=== PATIENT | male | born 1935 | race Caucasian/White ===

== ENCOUNTER → 2016-08-31 | Outpatient (CLI) | payer MEDICARE ==
[~2016-08-31] MED LIST: ASPI81CH32 PO; B121000T PO; TIMO5OPG OD
== END ==
LOC: M LAB 16:28
PROVIDERS: ATTEND Ophthalmology
DX: H54.61 Unqualified visual loss, right eye, normal vision left eye (principal)

== ENCOUNTER → 2016-09-01 | Outpatient (CLI) | payer MEDICARE ==
[2016-09-01 13:47] LABS: BLOOD UREA NITROGEN 20 MG/DL (7-18); CREATININE FOR GFR 0.79 MG/DL (0.70-1.30); GLOMERULAR FILTRATION RATE > 60.0 (>35)
== END ==
LOC: M LAB 12:50
PROVIDERS: ATTEND Ophthalmology
DX: H46.9 Unspecified optic neuritis (principal)

== ENCOUNTER 2016-09-02 08:52 | Outpatient (CLI) | payer MEDICARE ==
[~2016-09-02] VITALS: Ht 180.3 cm; Wt 87.3 kg
[2016-09-02] MEDS ORDERED: methylPREDNISolone 1,000 MG, VIAL MATE ADAPTER 1 EACH in D5W 250 ML IV ONE (09:30)
== END 2016-09-02 11:32 | disposition home or self-care (01) ==
LOC: M OPCLI4PR 08:52 → M MSPAV 08:54 → M OPCLI4PR 11:32
PROVIDERS: ATTEND Ophthalmology
DX: H46.9 Unspecified optic neuritis (principal)
CPT/HCPCS: 96365; J2930

== ENCOUNTER 2016-09-03 08:56 | Outpatient (CLI) | payer MEDICARE ==
[2016-09-03] MEDS ORDERED: methylPREDNISolone 1,000 MG, VIAL MATE ADAPTER 1 EACH in D5W 250 ML IV ONE (09:15)
[2016-09-03 09:35] VITALS: BP 148/76
[2016-09-03 10:40] VITALS: BP 155/80
[2016-09-04] MEDS ORDERED: TIMO5OPG OD (09:23)
[2016-09-04] MEDS ORDERED: ASPI81CH32 PO (09:24)
[2016-09-04] MEDS ORDERED: B121000T PO (09:24)
== END 2016-09-03 10:50 | disposition home or self-care (01) ==
LOC: M OPCLI4PV 08:56 → M MSPAV 08:58 → M OPCLI4PV 10:50
PROVIDERS: ATTEND Ophthalmology
DX: H46.9 Unspecified optic neuritis (principal)
CPT/HCPCS: 96365; J2930

== ENCOUNTER 2016-09-04 08:52 | Outpatient (CLI) | payer MEDICARE ==
[~2016-09-04] VITALS: Ht 180.3 cm; Wt 87.3 kg
[2016-09-04 09:15] VITALS: BP 151/74
[2016-09-04] MEDS ORDERED: TIMO5OPG OD (09:23)
[2016-09-04] MEDS ORDERED: B121000T PO (09:24)
[2016-09-04] MEDS ORDERED: ASPI81CH32 PO (09:24)
[2016-09-04] MEDS ORDERED: methylPREDNISolone 1,000 MG, VIAL MATE ADAPTER 1 EACH in D5W 250 ML IV ONE (09:30)
== END 2016-09-04 10:53 | disposition home or self-care (01) ==
LOC: M OPCLI4PR 08:52 → M PED 08:54 → M OPCLI4PR 10:53
PROVIDERS: ATTEND Ophthalmology
DX: H46.11 Retrobulbar neuritis, right eye (principal)
CPT/HCPCS: 96365; J2930

== ENCOUNTER → 2016-09-07 | Outpatient (CLI) | payer MEDICARE ==
--- NOTE | 2016-09-08 09:04 | REP ---
MR BRAIN WITHOUT AND WITH CONTRAST: HISTORY: Optic neuritis. CONTRAST: ProHance 17.6 mL. A small area of increased signal intensity and diffusion and T2-weighted images is present in the left cerebellum. This is slightly decreased in signal intensity on ADC images and is consistent with an early subacute infarction. Areas of increased signal intensity on T2-weighted images are present in the periventricular and subcortical white matter and maribel. This represents small vessel ischemic disease. There is no intraparenchymal hemorrhage, acute infarct, mass, or midline shift. There is no abnormal enhancement. The ventricular system and cortical sulci are dilated consistent with mild volume loss. There is no extracerebral collection. The sinuses are clear. IMPRESSION: 1. Small subacute left cerebellar infarction. 2. Small vessel ischemic disease. 3. Mild volume loss. Signed by Truong Dos Santos MD 09/08/2016 09:31 A
--- NOTE | 2016-09-08 09:07 | REP ---
MR ORBITS WITHOUT AND WITH CONTRAST: HISTORY: Optic neuritis. CONTRAST: ProHance 17.6 mL. The globes, optic nerves, and rectus muscles are normal in appearance. There is no orbital lesion. There is no abnormal enhancement. The cavernous sinuses, optic chiasm, and hypothalamus are normal in appearance. The sinuses are clear. IMPRESSION: There is no orbital lesion. Signed by Truong Dos Santos MD 09/08/2016 09:32 A
== END ==
LOC: M RAD 13:08
PROVIDERS: ATTEND Ophthalmology
DX: H46.9 Unspecified optic neuritis (principal)
CPT/HCPCS: 70543; 70553; A9576

== ENCOUNTER → 2016-11-02 | Outpatient (CLI) | payer MEDICARE ==
[~2016-11-02] MED LIST changes: +ATOR40TA75 PO; +CLOP75TA2 PO; +DIGO0.12 PO; +ELIQ5TAB PO; +NITR0.2D TD; +NITR0.4S14 SL
--- NOTE | 2016-11-16 14:25 | REP ---
Chest two views HISTORY: COPD Comparison: None The examination is available for review 02:15 p.m. 11/16/16 The lungs are hyperinflated. Linear densities are present in the left lower lobe consistent with atelectasis or scar. The heart is normal in size. The pulmonary vasculature is normal in appearance. The bony structure is intact. IMPRESSION: Left lower lobe atelectasis or scar. Signed by rTuong Dos Santos MD 11/16/2016 02:17 P
== END ==
LOC: M RAD 10:26
PROVIDERS: ATTEND Internal Medicine Cardiovascular Disease
DX: J98.11 Atelectasis (principal); J44.9 Chronic obstructive pulmonary disease, unspecified

== ENCOUNTER 2017-01-22 10:31 | Emergency (ER) | payer MEDICARE ==
[~2017-01-22] VITALS: Ht 180.3 cm; Wt 83.9 kg
[~2017-01-22 10:31] MED LIST changes: -ATOR40TA75 PO; -CLOP75TA2 PO; -DIGO0.12 PO; -ELIQ5TAB PO; -NITR0.2D TD; -NITR0.4S14 SL
[2017-01-22 11:11] LABS: BASO % 0.3 % (0.0-1.0); EOS # 0.2 10^3/uL (0.0-0.50); EOS % 1.7 % (0.0-3.0); IMMATURE GRANULOCYTE % 1.2 % (0-0); LYMPH # 1.3 10^3/uL (1.5-4.5); LYMPH % 12.8 % (24.0-44.0); MEAN CORPUSCULAR HGB CONC 30.2 g/dl (32.0-36.5); MEAN CORPUSCULAR VOLUME 102.7 fl (80.0-96.0); MONO # 0.7 10^3/uL (0.0-0.8); MONO % 7.4 % (0.0-5.0); NEUTROPHILS # 7.7 10^3/uL (1.8-7.7); NEUTROPHILS % 76.6 % (36.0-66.0); PLATELET COUNT, AUTOMATED 271 10^3/uL (150-450); RED CELL DISTRIBUTION WIDTH 16.5 % (11.5-14.5)
[2017-01-22] MEDS ORDERED: NITR0.2D TD (11:11)
[2017-01-22] MEDS ORDERED: ATOR40TA75 PO (11:11)
[2017-01-22] MEDS ORDERED: CLOP75TA2 PO (11:11)
[2017-01-22] MEDS ORDERED: DIGO0.12 PO (11:11)
[2017-01-22] MEDS ORDERED: NITR0.4S14 SL (11:11)
[2017-01-22] MEDS ORDERED: ELIQ5TAB PO (11:11)
--- NOTE | 2017-01-22 11:17 | REP ---
Chest one-view HISTORY: Chest pain Comparison: 11/02/2016 Linear densities are present in the left lower lobe consistent with scar. The right lung is clear. The heart is normal in size. The pulmonary vasculature is normal in appearance. Impression: Left lower lobe scar. Signed by Truong Dos Santos MD 01/22/2017 11:09 A
[2017-01-22 11:23] LABS: INR 1.27
[2017-01-22 11:32] LABS: ALBUMIN 3.2 GM/DL (3.2-5.2); ALKALINE PHOSPHATASE 139 U/L (45-117); ALT/SGPT 23 U/L (12-78); ANION GAP 9 MEQ/L (8-16); AST/SGOT 28 U/L (15-37); BILIRUBIN,DIRECT 0.2 MG/DL (0.0-0.2); BILIRUBIN,TOTAL 0.5 MG/DL (0.2-1.0); BLOOD UREA NITROGEN 22 MG/DL (7-18); CALCIUM LEVEL 8.4 MG/DL (8.8-10.2); CARBON DIOXIDE LEVEL 24 MEQ/L (21-32); CHLORIDE LEVEL 109 MEQ/L (98-107); CREATININE FOR GFR 0.93 MG/DL (0.70-1.30); FREE T4 1.25 NG/DL (0.76-1.46); GLOMERULAR FILTRATION RATE > 60.0 (>35); GLUCOSE, FASTING 118 MG/DL (83-110); SODIUM LEVEL 142 MEQ/L (136-145); TOTAL PROTEIN 6.1 GM/DL (6.4-8.2)
[2017-01-22] MEDS ORDERED: PANTOPRAZOLE SODIUM 40 MG in D5W 50 ML IV SCH (12:00)
[2017-01-22] MEDS ORDERED: PANTOPRAZOLE 40MG INJ (PROTONIX) (C9113) IV ONE (12:00)
[2017-01-22 15:43] VITALS: BP 121/59
--- NOTE | 2017-01-22 18:54 | ECGEPIP ---
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
== END 2017-01-22 15:47 | disposition short-term general hospital (02) ==
LOC: M ED 10:31 → EDBD 10:31 → M ED 15:47
DX: K92.2 Gastrointestinal hemorrhage, unspecified (principal); D64.9 Anemia, unspecified; I35.0 Nonrheumatic aortic (valve) stenosis; I21.4 Non-ST elevation (NSTEMI) myocardial infarction; Z98.61 Coronary angioplasty status
CPT/HCPCS: 36415; 36430; 71010; 80048; 80076; 82550; 82553; 83690; 83880; 84439; 84443; 84484; 85025; 85610; 85730; 86850; 86900; 86901; 86920; 93005; 93041; 94760; 96374; 96375; 99285; C9113; P9016